=== PATIENT | female | born 1935 | race African-American/Black ===

== ENCOUNTER → 2017-03-03 | Outpatient (CLI) | payer OTHER ==
[~2017-03-03] VITALS: Ht 152.4 cm; Wt 58.7 kg
[~2017-03-03] MED LIST: BENICAR20 MG; BENICAR20 MG PO; CALCIUM 600 +1 EAC3 PO; CENTRUM SILVER1 EAC3 PO; COLACE100 MG PO; CREON DR 24,001 EACH PO; INDAPAMIDE2.5 MG PO; LISINOPRIL10 MG PO; OXYCODONE-APAP1 EAC4 PO; OXYCONTIN20 M1; PERCOCET PO; PRAVACHOL20 MG PO; PRILOSEC 10MG C10 MG PO; TYLENOL EXTRA500 MG PO; VERAPAMIL E.R240 M1 PO; VITAMIN D250000 UNIT PO
--- NOTE | ~2017-03-03 | HPC ---
[facility] [place] [address] PAIN MANAGEMENT CONSULTATION Name: AJ COATESEMMA Talley Room #: REG [facility] Svitlana.#: [id number] Admission: 03/03/17 Attend Phys: Randolph Andres MD Discharge: Date of : 33 Report #: [id number] THIS REPORT FOR: //name// CC: Randolph Orona MD DATE OF SERVICE: 03/03/2017 CHIEF COMPLAINT: Low back pain radiating into both legs. The patient is a delightful 82-year-old who I last saw in 2009. At that time, she had lumbar radiculopathy radiating into both legs. I saw her twice and she received 2 epidural injections with excellent response and she says that her pain was quite well controlled up until just recently. She has now had increasing pain over the course of the last several months. She has a remote history of herniated disk and has degenerative disk disease and degenerative joint disease. Because of her favorable response to epidural steroid injection, her physician, Dr. Jose Luis Orona, sent her to us with considerations for an injection today. She describes her pain as crushing, aching, shooting 7/10, worse with standing and walking and worse in the morning and involves both hips and both legs and follows an L4-L5 and L5-S1 distribution. MEDICATIONS: Acetaminophen, calcium carbonate, omeprazole, oxycodone 5 mg 1 tablet every 6 hours as needed, indapamide, verapamil, pravastatin, vitamin D2, lisinopril, multivitamins and Creon. ALLERGIES: CEPHALEXIN. PAST MEDICAL HISTORY: Remarkable for hysterectomy, appendectomy and diverticulitis. SOCIAL HISTORY: She is . In fact, her is a patient of ours and is doing well following his treatments!. She does not use tobacco or alcohol. REVIEW OF SYSTEMS: Completed by the patient. She circles no for every single question other than the need for reading glasses. PHYSICAL EXAMINATION: She is a delightful 82-year-old pleasant, alert and oriented. She gives clear history. Her blood pressure is 115/82, heart rate 80, respirations 16. BMI is 25.3. She is able to move independently from sitting to standing position, walks with this very slightly antalgic gait. Lumbar spine in flexion is pretty good. She has minimal pain. With back extension, she reproduces radicular symptoms into the posterior aspect of both [facility] [address] [address] PAIN MANAGEMENT CONSULTATION Name: COATESCHRISTY [id number] Admission: 03/03/17 Attend Phys: Randolph Andres MD Discharge: Date of : 34 Report #: [id number] legs. Straight leg raising also reproduces some symptoms of discomfort into the leg. There is no focal weakness and no numbness. Her chest is clear and her cardiac rhythm is regular. IMPRESSION: Low back pain with radiculopathy. I do have a distant MRI, which shows that there is degenerative disk disease at L4-L5 and L5-S1. A new MRI is reviewed that shows that there is stenosis at L4-L5 as well as L5-S1, narrowing the canal to less than 40% of its normal caliber. IMPRESSION: Lumbar radiculopathy secondary to spinal stenosis, L4-L5 and L5-S1. RECOMMENDATION: Epidural steroid injection under fluoroscopic guidance. PROCEDURE: The patient was taken to the fluoroscopic suite, placed prone, skin prepped with ChloraPrep, skin anesthetized over the L4-L5 interspace. Needle was advanced in the epidural space at the right of midline at L4-L5. There was no blood or CSF aspirated. 1 mL of Omnipaque was injected with excellent spread of dye observed in the epidural space was followed by 3 mL of 0.5% lidocaine mixed with 80 mg of triamcinolone. She tolerated the procedure well and was observed for 45 minutes and discharged. Followup visit scheduled in the pain clinic in one month. By: [id number] Randolph Andres MD /nt
[2017-03-03 10:24] VITALS: BP 115/82
== END | disposition home or self-care (01) ==
LOC: PAIN 07:24
DX: M48.06 Spinal stenosis, lumbar region (principal); M54.16 Radiculopathy, lumbar region; I10 Essential (primary) hypertension; K27.9 Peptic ulcer, site unspecified, unspecified as acute or chronic, without hemorrhage or perforation; Z90.710 Acquired absence of both cervix and uterus; Z90.49 Acquired absence of other specified parts of digestive tract; Z88.8 Allergy status to other drugs, medicaments and biological substances; Z79.899 Other long term (current) drug therapy; Z98.890 Other specified postprocedural states

== ENCOUNTER → 2017-03-31 | Outpatient (CLI) | payer OTHER ==
[~2017-03-31] VITALS: Ht 152.4 cm; Wt 57.2 kg
--- NOTE | ~2017-03-31 | HPC ---
[facility] [place] [address] PAIN MANAGEMENT CONSULTATION Name: CHRISTY COATES Room #: REG [facility] Svitlana.#: [id number] Admission: 03/31/17 Attend Phys: Randolph Andres MD Discharge: Date of : 34 Report #: [id number] THIS REPORT FOR: //name// CC: Randolph Orona DATE OF SERVICE: 03/31/2017 DATE OF SERVICE: 03/31/2017 Followup visit for recurring low back pain with radiculopathy. HISTORY OF PRESENT ILLNESS: The patient returns to pain clinic today for an epidural steroid injection. She has had intermittent injections performed over several years. She is typically an excellent responder receiving months, sometimes even over a year, of pain relief with the injection. Her last injection was performed in this clinic on 03/03/2017. It is not uncommon for her to get a couple of injections and then not be seen for a year or so. She returns to again today with pain radiating into both legs very similar to that which she presented with a few weeks ago, but her pain intensity is reduced by about 50%. She is here for a second injection. She had no complications with her previous injection and noticed pain relief within a couple days. There have been no changes in her medication. PHYSICAL EXAMINATION: She moves more easily from sitting to standing, ambulates with less difficulty. IMPRESSION: Recurring lumbar radiculopathy. Bilateral lower extremities. Spinal stenosis L4-L5 and L5-S1.: Epidural steroid in under fluoroscopic guidance. PROCEDURE: She was taken to the fluoroscopic suite, placed prone, skin prepped with ChloraPrep. Skin anesthetized over the L4-L5 interspace. A 20-gauge Tuohy epidural needle advanced first attempt in the epidural space with loss of resistance. There was no blood or CSF aspirated. 1 mL of Omnipaque injected. Good spread of dye observed in the epidural space followed by 3 mL of 0.5% lidocaine. She tolerated the procedure well and was observed for 45 minutes and discharged. Follow up as needed. I do not plan another injection at this time. By: [id number] Randolph Andres MD /nt
[2017-03-31 10:03] VITALS: BP 148/82
== END | disposition home or self-care (01) ==
LOC: PAIN 06:13
DX: M48.06 Spinal stenosis, lumbar region (principal); M54.16 Radiculopathy, lumbar region; Z98.890 Other specified postprocedural states; Z88.1 Allergy status to other antibiotic agents; Z79.899 Other long term (current) drug therapy

== ENCOUNTER → 2017-07-21 | Outpatient (CLI) | payer OTHER ==
[~2017-07-21] VITALS: Ht 152.4 cm; Wt 59.0 kg
--- NOTE | ~2017-07-21 | HPC ---
[facility] [address] [address] PAIN MANAGEMENT CONSULTATION Name: CHRISTY COATES Room #: REG [facility].#: [id number] Admission: 07/21/17 Attend Phys: Randolph Andres MD Discharge: Date of : 34 Report #: [id number] THIS REPORT FOR: //name// CC: Randolph Orona MD DATE OF SERVICE: 07/21/2017 Followup visit for low back pain with radiation to the right leg. The patient returns to the pain clinic today for an epidural injection. She has responded very nicely to these injections in the past. Her last injection in our clinic for this condition was on 03/31/2017. She reported many months of pain relief after a series of 2 injections. Prior to that, she had 2 injections in 2009. Pain today is recurring in her low back. She scores it at an intensity level of 6. She describes it as aching and shooting. It is worse in the hips, but radiates into both legs, right worse than left. Standing is one of her worst activities. It is worse in the morning. She gets relief with sitting and medication. PQRS reviewed. It shows that her BMI is 25. She does not smoke. She is not treated currently for hypertension. She is not on an opioid medication. PHYSICAL EXAMINATION: VITAL SIGNS: Blood pressure is 137/81, heart rate is 83 and respirations are 16. Oxygen saturation is 98%. MUSCULOSKELETAL: She moves from sitting to standing position and ambulates with mild antalgic feature. She has positive straight leg raising test on the left and right and follows the L5-S1 distribution. RADIOGRAPHIC DATA: MRI is reviewed, which shows that she has bilateral neural foraminal narrowing at L4-L5. At L3-L4, there is also facet hypertrophy and some neural foraminal narrowing. IMPRESSION: Lumbar radiculopathy, L3-L5. RECOMMENDATIONS: Epidural steroid injection. She has responded very nicely with prolonged response to these injections. PROCEDURE: She was taken to the fluoroscopic suite, placed prone and skin prepped with ChloraPrep. Skin anesthetized over the L3-L4 interspace. A 20-gauge Tuohy epidural needle advanced in the epidural space with loss of resistance. There was no blood or CSF aspirated. One mL of Omnipaque injected. Good spread of dye observed in the epidural space. This was followed by [address] [address] PAIN MANAGEMENT CONSULTATION Name: CHRISTY COATES Room #: REG [facility] Myriam.#: [id number] Admission: 07/21/17 Attend Phys: Randolph Andres MD Discharge: Date of : 34 Report #: [id number] of 0.5% lidocaine with 80 mg triamcinolone. She tolerated the procedure well and was observed for 45 minutes and discharged. Follow up as needed. <ELECTRONICALLY SIGNED> By: Randolph Andres MD 09/14/17 [id number] [id number] Randolph Andres MD /naveen
[2017-07-21 14:14] VITALS: BP 143/76
== END | disposition home or self-care (01) ==
LOC: PAIN 07:20
DX: M54.16 Radiculopathy, lumbar region (principal); G89.29 Other chronic pain; Z88.8 Allergy status to other drugs, medicaments and biological substances; Z79.891 Long term (current) use of opiate analgesic; Z79.899 Other long term (current) drug therapy